=== PATIENT | male | born 1930 | race Caucasian/White ===

== ENCOUNTER 2016-10-29 09:34 | Inpatient (IN) | payer MEDICARE, BC ==
[~2016-10-29] VITALS: Ht 182.9 cm; Wt 78.7 kg
[~2016-10-29 09:34] MED LIST: CALCIUM 500 +1 EAC1 PO; CARDIZEM CD240 M1 PO; COZAAR DPS50 MG PO; DAILY MULTIPLE1 EAC1 PO; ELIQUIS5 MG PO; FLOMAX DPS0.4 MG PO; ILEVRO1.7 ML OU; KLOR-CON M2020 ME1 PO; LASIX DPS40 MG PO; LEXAPRO DPS10 MG PO; MAALOX DPS30 ML PO; PRAVASTATIN SOD80 MG PO; TEARS NATURAL D15 ML OU; TOPROL XL50 MG PO; TYLENOL DPS325 MG PO; WELCHOL625 MG PO; XANAX DPS0.25 MG PO
--- NOTE | 2016-10-30 10:20 | HP ---
ADMIT: 10/29/2016 RM/LOC: 523 [facility] MR#: [id number] [address] [address] ANALI ORELLANA [address] [place] [address] History and Physical SEX: M AGE: 86 : 1930 DATE OF SERVICE: CHIEF COMPLAINT: Worsening shortness of breath and some lower extremity edema since leaving the hospital 4 days ago. INTERVAL NOTE: Mr. Orellana is a very nice but unfortunate 86-year-old, male, who was hospitalized here from 09/28/2016 until about 10/25/2016 with a combination of severe apparent gastroenteritis, left lower lobe pneumonia, new onset atrial fib/flutter with RVR and acute kidney injury. He had pretty much recovered from all of that after multiple hospital stays and consultations including Pulmonary, Cardiology, Infectious Disease, Renal. He was also seen by Dr. Crowder because of some delirium issues during the hospitalization. He was brought in to the Monday morning clinic this morning after having been seen by Dr. Meek Angel yesterday in the office when chest x-ray was compatible with congestive failure. His p.o. Lasix was doubled and he was placed on some Augmentin. He was told to check in this morning if he was not getting better and ! he was not able to sleep much last night because he could not lie flat. He has had increasing exertional shortness of breath, and despite taking Lasix b.i.d. and having an increased urinary output, his lower extremity swelling is the same. When seen in the office, his initial O2 saturation was 84% on room air which improved to 89% on 2-3 L. Given this story and his exam as described below, he is readmitted for further evaluation and treatment. PAST MEDICAL HISTORY: Positive for hypertension, hyperlipidemia, osteoarthritis, chronic constipation with irritable bowel syndrome, and a previous history of gastrointestinal bleeds as well as a history noted above. ALLERGIES: LISTED TO SULFA, KEFLEX, DIAMOX, PAXIL, AND LEVOFLOXACIN. CURRENT MEDICATIONS: Include: 1. Augmentin 875/125 b.i.d. (single dose yesterday). 2. Claritin 10 mg daily. 3. Flonase nasal spray, two sprays both nostrils at bedtime. 4. Welchol 625 mg q.4-6 hours p.r.n. IBS diarrhea. 5. Cardizem LA 240 mg daily. 6. Eliquis 5 mg b.i.d. 7. Lasix 40 mg daily (b.i.d. yesterday). 8. Lexapro 10 mg daily. 9. Losartan 50 mg daily. 10.Multivitamin 1 daily. 11.Toprol-XL 100 mg daily. 12.Alprazolam 0.25 mg one or two b.i.d. p.r.n. 13.Flomax 0.4 mg b.i.d. 14.Pravastatin 80 mg daily. 15.Ranitidine 150 mg b.i.d. 16.Ilevro 0.3% one drop OU daily. 17.Os-Nicolas 500/200 once daily. ADMIT: 10/29/2016 RM/LOC: 523 [facility] MR#: [id number] [address] [place] [id number] ANALI ORELLANA [address] [place] [address] History and Physical SEX: M AGE: 86 : 1930 18.Natural tears p.r.n. SOCIAL HISTORY: Reveals he lives independently with his . His family is very attentive to him. He does not use tobacco. He drinks alcohol rarely. FAMILY HISTORY: From old records is positive for breast cancer in his mother and sister and lung cancer in his father. REVIEW OF SYSTEMS: Otherwise fairly negative except as described in the history of present illness. He denies any new fever or chills or sweats. He has had no headache or sore throat. He has had no productive cough, just the shortness of breath as outlined in the HPI. He denies any ominous chest pain. He states his bladder function has been normal and "a bit hyperactive yesterday when I took the Lasix." His bowel function has been stable with his known IBS. He has had the noted swelling of the lower extremities. Remainder of his review of systems is negative. PHYSICAL EXAMINATION: GENERAL: He is alert, oriented x3. SKIN: Warm and dry and he has reasonable color on 3 L of O2. VITAL SIGNS: Here in the office, his blood pressure was 122/88, right arm sitting regular cuff, pulse of 84 and slightly irregular, respirations of 15. He is afebrile. His BMI is 27.4, and as noted, his initial O2 saturation was 83-84% on room air improving to 89% on oxygen. HEENT: Essentially negative. NECK: Reasonably supple. I detect no bruits. LUNGS: Exam shows bibasilar coarse rales and rhonchi. Otherwise, his upper lungs sound clear. CARDIAC: Shows a slightly irregularly irregular cardiac rhythm. He has an intermittent grade 1-2 systolic murmur. ABDOMEN: Soft. No obvious masses, tenderness, or organomegaly. GENITAL AND RECTAL: Exam was not done. EXTREMITIES: Lower extremities show 1+ pretibial edema to the upper calf. He has no cyanosis. He has good capillary return in his feet. IMPRESSION: 1. Persistent and worsening congestive heart failure. 2. Recent hospitalization with gastroenteritis, and all of the other issues noted in the HPI. ADMIT: 10/29/2016 RM/LOC: 523 [facility] MR#: [id number] [facility] [address] [address] ANALI ORELLANA [facility] [place] [address] History and Physical SEX: M AGE: 86 : 1930 3. History of hypertension. 4. History of osteoarthritis. 5. Hyperlipidemia. 6. Previous GI bleed. 7. Multiple allergies. PLAN: He has been readmitted. We will get some baseline laboratory studies and recheck his chest x-ray and echocardiogram. We will start DuoNeb q.i.d. and q.1-2 hours p.r.n. We will give him O2 to maintain sats greater than 90%. We will hold off on antibiotics for now and start with Lasix 40 mg IV this a.m. Further treatment or consultations will depend on his response to initial therapies. Tommie Barry MD/ weston JOB #: [id number] CC: Tommie Barry, Attending Physician Allen Angel, Family Physician
--- NOTE | 2016-10-31 14:50 | CO ---
ADMIT: 10/29/2016 RM/LOC: 408 [facility] MR#: [id number] [address] [address] ANALI ORELLANA [address] [place] [address] Consultation SEX: M AGE: 86 : 1930 DATE OF CONSULTATION: 10/31/2016 ATTENDING PHYSICIAN: Allen Angel CONSULTING PHYSICIAN: Grupo Louis MD REASON FOR CONSULT: Worsening of shortness of breath. HISTORY OF PRESENT ILLNESS: Anali is an 86-year-old male, who presented to the hospital with worsening shortness of breath that started on evening, October 28. He reports he was lying in bed when he felt short of breath. He denies any chest pain, syncope, dizziness, and palpitation. He was hospitalized from 09/28/2016 until 10/25/2016, with a combination of severe gastroenteritis, left lower lobe pneumonia, new onset of atrial fib/flutter with RVR, and acute kidney injury. He was seen by Dr. Meek Angel on October 29, in the office and his chest x-rays were compatible with congestive heart failure. His Lasix was doubled and he was placed on some Augmentin. He was admitted to the hospital for further evaluation and treatment. This morning, he denies any chest pain, shortness of breath, heart palpitations,and dizziness. PAST MEDICAL HISTORY: Positive for hypertension, hyperlipidemia, osteoarthritis, chronic constipation with irritable bowel syndrome, previous history of gastrointestinal bleed. ALLERGIES: SULFA, KEFLEX, DIAMOX, PAXIL, AND LEVOFLOXACIN. CURRENT MEDICATIONS: 1. Augmentin 875/125 b.i.d. 2. Claritin 10 mg daily. 3. Flonase nasal spray, 2 sprays both nostrils at bedtime. 4. Welchol 625 mg every 4-6 hours p.r.n. IBS diarrhea. 5. Cardizem LA 240 mg daily. 6. Eliquis 5 mg b.i.d. 7. Lasix 40 mg b.i.d. 8. Lexapro 10 mg daily. 9. Losartan 50 mg daily. 10.Multivitamin one daily. 11.Toprol-XL 100 mg daily. 12.Alprazolam 0.25 mg one or two b.i.d. p.r.n. 13.Flomax 0.4 mg b.i.d. 14.Pravastatin 80 mg daily. 15.Ranitidine 150 mg b.i.d. 16.Ilevro 0.3% one drop OU daily. 17.Os-Nicolas 500/200 once daily. 18.Natural Tears p.r.n. SOCIAL HISTORY: The patient is a former smoker but he quit 40 years ago. He ADMIT: 10/29/2016 RM/LOC: 408 [facility] MR#: [id number] [address] [place] [phone] ANALI ORELLANA [facility] [place] [address] Consultation SEX: M AGE: 86 : 1930 drinks alcohol occasionally. He denies any special diet. FAMILY HISTORY: From old records is positive for breast cancer in his mother and sister and lung cancer in his father. REVIEW OF SYSTEMS: GENERAL: Denies fatigue, fever, chills, sweats, rash, or weight loss. EYES: Denies double vision, blurred vision, cataracts, or glaucoma. ENT: Denies hearing loss or problems with nose, mouth or throat. PULMONARY: Denies cough, sputum production, asthma, emphysema or bronchitis. Denies snoring loudly, wakefulness at night, or fatigue upon awakening. GASTROINTESTINAL: Denies heartburn or difficulty swallowing. No change in bowel habits. Denies dark or bloody stools. No history of ulcers, hiatal hernia, or gallbladder or liver disease. GENITOURINARY: Denies dysuria, hematuria, nocturia, urinary tract infection, or kidney stones. Denies history of renal insufficiency or failure. MUSCULOSKELETAL: Denies history of arthritis or gout. Denies muscle or joint pains. ENDOCRINE: Denies history of thyroid dysfunction or diabetes. HEMATOLOGIC: Denies history of anemia, easy bruising, or cancer. NEUROLOGIC: Denies chronic headaches, dizziness, syncope, stroke, seizures or numbness or tingling. PSYCHIATRIC: Denies history of mental illness or feelings of depression. PHYSICAL EXAMINATION: VITAL SIGNS: Blood pressure 154/63, pulse 84, respirations 20, temperature 98.6, oxygenation 92% on O2. SKIN: [place], warm and dry. EYES: Sclerae clear. No xanthelasmas. ENT: Oral mucosa is pink and moist. JVD was difficult to visualize. No carotid bruits. CHEST: Distant breath sounds. HEART: Irregularly irregular. ABDOMEN: Soft and nontender. MUSCULOSKELETAL: Gait is normal. EXTREMITIES: Positive mild edema. Peripheral pulses palpable. No clubbing or cyanosis. PSYCHIATRIC: Alert and oriented. Mood and affect are appropriate. LABORATORY AND X-RAY DATA: WBC 6.3, hemoglobin 9.7, hematocrit 31.2, platelet 252. Sodium 145, potassium 3.6, chloride 109, carbon dioxide 29, urea 22, glucose 108, creatinine 1.3. Chest x-ray on 10/31/2016; impression, pulmonary edema, stable. ASSESSMENT AND PLAN: Per Dr. Louis: 1. Atrial flutter. Ventricular response is controlled, but he has worsened ADMIT: 10/29/2016 RM/LOC: 408 [facility] MR#: [id number] [facility] [address] [address] ANALI ORELLANA [address] [place] [address] Consultation SEX: M AGE: 86 : 1930 heart failure symptoms. He has been on Eliquis for 1 month now. We will proceed with cardioversion. We discussed risks and benefits and he agreed. 2. Acute on chronic congestive heart failure. We will continue IV Lasix. 3. Irritable bowel syndrome. 4. Hypertension. 5. Hyperlipidemia. We will have the patient n.p.o. after midnight except water with medications, and we will plan a cardioversion in the morning. Thank you for the consult. JESSICA Almaraz Student / Grupo Louis MD / weston JOB #: [id number] CC: Allen Angel, Attending Physician Allen Angel, Family Physician
[2016-11-03] MEDS ORDERED: CLARITIN DPS10 MG PO (06:42)
[2016-11-03] MEDS ORDERED: FLONASE 0.05% D16 GM NS (06:43)
[2016-11-03] MEDS ORDERED: ALDACTONE DPS25 MG PO (06:43)
[2016-11-03] MEDS ORDERED: NITROSTAT0.4 MG SL (06:44)
[2016-11-03] MEDS ORDERED: BETAPACE DPS80 MG PO (06:44)
[2016-11-03] MEDS ORDERED: DUONEB DPS3 ML IH (06:44)
[2016-11-03] MEDS ORDERED: SURFAK DPS240 MG PO (06:44)
--- NOTE | 2016-11-04 11:01 | CVR ---
ADMIT: 10/29/2016 RM/LOC: 408 [facility] MR#: [id number] [address] [address] ANALI ORELLANA [address] [facility] [place] [address] Cardioversion Report SEX: M AGE: 86 : 1930 DATE: 11/01/2016 INDICATION: Anali is a pleasant 86-year-old male who had recently diagnosed atrial flutter. He has been on Eliquis for the last month but has had worsening heart failure symptoms. He was readmitted to the hospital with atrial flutter and worsening heart failure. PROCEDURE: The patient was prepped in usual fashion and given propofol for anesthesia. The patient received a single 50-joule synchronized biphasic shock converting him from atrial flutter to a sinus rhythm. He will be maintained on his Eliquis for anticoagulation. We will decrease his Toprol and add sotalol for antiarrhythmic therapy. SUMMARY: Successful cardioversion from atrial flutter to normal sinus rhythm. Grupo Louis MD/ weston JOB #: [id number] CC: Allen Angel, Attending Physician Allen Angel, Family Physician Allen Angel MD
--- NOTE | 2016-12-25 15:25 | DS ---
ADMIT: 10/29/2016 RM/LOC: 408 [facility] MR#: [id number] [address] [facility] [address] [place], [place] [address] ANALI ORELLANA [address] [place] [address] General Discharge Summary SEX: M AGE: 86 : 1930 ADMISSION DATE: 10/29/2016 DISCHARGE DATE: 11/02/2016 INDICATION FOR HOSPITALIZATION: Ethan is an 86-year-old, white male, admitted to [facility] on October 29 with increasing dyspnea and swelling of his lower extremities after leaving the hospital on October 25 with left lower lobe pneumonia, septicemia, atrial fib flutter, and acute kidney injury. He was brought in for congestive heart failure. They had tried outpatient doubling his diuretic, but when that was unsuccessful, he was admitted to [facility] through the ER with dyspnea, hypoxia, and CHF. HOSPITAL COURSE: On admission, he was admitted to telemetry, placed on oxygen, given nebulizers. Blood cultures were obtained. Serial cardiac enzymes, EKG, and echocardiogram were ordered. He was admitted for further evaluation and management. IV Zosyn and Levaquin were added to cover possible infectious source. ProBNP was noted to be 4900. IV diuretics were ordered. By October 31, vital signs were stable. Potassium was borderline low at 3.6. Potassium adjustments were made. IV Levaquin was switched from IV to oral. Physical and occupational therapy were consulted, and Cardiology was consulted for his atrial fibrillation with CHF. The patient was scheduled for DC cardioversion on November 01. Following his DC cardioversion, Toprol doses, and sotalol were adjusted. On November 02, his vital signs were stable. He was felt to be ready to discharge to home. He converted from atrial flutter to sinus rhythm with his DC cardioversion. He was weaned off oxygen and was discharged to home. He was scheduled to follow up with [facility] on November 04 in 1 month. Medications on discharge are listed as discharge med list. Please include a copy of his discharge medications. He is to follow up with Dr. Allen Angel the following week. Resume his low-salt diet. LAB/X-RAY DATA: On hospitalization include November 01; white count of 5.9, hemoglobin 7.5, platelet count 263,000. On October 29; white count of 13.2, hemoglobin 10.8 with a platelet count of 273,000. Hemoccult testing was positive on October 30 and . November 02; sodium 145, potassium 4.2, BUN of 23, creatinine 1.0 with a glucose of 100, and magnesium 2.2. On October 30; sodium 143, potassium 3.6, BUN of 24, creatinine 1.4 with glucose 117. On October 29; sodium 144, potassium 4.2, BUN of 28, creatinine 1.2 with a glucose 111. ProBNP on admission was 4927. Erythropoietin on October 29 was 60. Blood cultures on October 29 showed no growth. Chest x-ray on October 19 shows CHF. DC cardioversion occurred on November 01. Admit EKG shows atrial flutter. On November 01, EKG shows sinus rhythm. FINAL DISCHARGE DIAGNOSES: Include: 1. Atrial fib flutter with congestive heart failure exacerbation. 2. Benign essential hypertension. ADMIT: 10/29/2016 RM/LOC: [address] [place] [address] MR#: [id number] [address] [place] [phone] ANALI ORELLANA [address] [place] [address] General Discharge Summary SEX: M AGE: 86 : 1930 3. Hyperlipidemia. 4. Chronic kidney disease. 5. Osteoarthritis. 6. Gastrointestinal bleed. 7. Hypoxia. 8. Generalized anxiety disorder. 9. Benign prostatic hypertrophy. 10.Hypokalemia. PROCEDURES: Include IV diuretics, DC cardioversion, fluid and electrolyte monitoring rule out sepsis workup. Please see his hospital record for the details. Allen Angel MD/ weston JOB #: [id number] CC: Allen Angel MD, Attending Physician Allen Angel MD, Family Physician
[2017-06-09] MEDS ORDERED: ANUSOL-HC25 MG PR (16:48)
[2017-06-09] MEDS ORDERED: XANAX DPS0.25 MG PO (16:48)
[2017-06-09] MEDS ORDERED: CARDIZEM CD300 MG PO (16:48)
[2017-06-09] MEDS ORDERED: COUMADIN6 MG PO (16:49)
[2017-06-09] MEDS ORDERED: PRAVACHOL80 MG PO (16:49)
[2017-06-09] MEDS ORDERED: FLOMAX DPS0.4 MG PO (16:49)
[2017-06-09] MEDS ORDERED: COLACE-DPS100 MG PO (16:50)
[2017-06-09] MEDS ORDERED: BETAPACE DPS80 MG PO (16:50)
[2017-06-09] MEDS ORDERED: COZAAR100 MG PO (16:50)
[2017-06-09] MEDS ORDERED: ZANTAC DPS150 MG PO (16:50)
[2017-06-09] MEDS ORDERED: NITROGLYCERIN0.4 MG (16:51)
[2017-06-09] MEDS ORDERED: CLARITIN DPS10 MG PO (16:51)
[2017-06-09] MEDS ORDERED: NITROSTAT0.4 MG SL (16:51)
[2017-06-09] MEDS ORDERED: THERA1 EACH PO (16:51)
[2017-06-09] MEDS ORDERED: TEARS NATURAL D15 ML OU (16:52)
[2017-06-09] MEDS ORDERED: ILEVRO1.7 ML OU (16:52)
[2017-06-09] MEDS ORDERED: TYLENOL DPS325 MG PO (16:52)
[2017-06-09] MEDS ORDERED: VANCOCIN HCL125 MG PO (16:53)
[2017-06-09] MEDS ORDERED: POTASSIUM CHLO20 ME2 PO (16:53)
== END 2016-11-02 13:31 | disposition home or self-care (01) | DRG 308 ==
LOC: 4PCU 09:34 → 5MS 09:34 → 4PCU 10-31 00:10
PROVIDERS: ADMIT Family Medicine
PROC: 5A2204Z Restoration of Cardiac Rhythm, Single (ICD-10-PCS; principal; 2016-11-01)
DX: I48.92 Unspecified atrial flutter (principal); I50.33 Acute on chronic diastolic (congestive) heart failure; I11.0 Hypertensive heart disease with heart failure; E78.5 Hyperlipidemia, unspecified; F41.1 Generalized anxiety disorder; M19.90 Unspecified osteoarthritis, unspecified site; K58.1 Irritable bowel syndrome with constipation; Z79.01 Long term (current) use of anticoagulants; Z87.891 Personal history of nicotine dependence